=== PATIENT | female | born 1950 | race Caucasian/White ===

== ENCOUNTER → 2017-01-03 | Outpatient (CLI) | payer OTHER ==
[~2017-01-03] MED LIST: ASCO500T16 PO; ASPI81TA28 PO; DRON400T PO; FLEC100T21 PO; METO50TA7 PO; OMEG-21 PO; RIVA1TAB4 PO; SACC250C11; SERT50TA PO; THIA50TA3 PO; [UNRECOGNIZED DRUG - CODE] PO
[2017-01-03 14:20] LABS: ESTIMATED AVERAGE GLUCOSE 120 mg/dl; HA1C FLAG Normal (Normal)
[2017-01-03 15:25] LABS: ALB/GLOB RATIO 0.9 (0.9-2); ALKALINE PHOSPHATASE 59 U/L (45-117); ALT/SGPT 26 U/L (12-78); AST/SGOT 16 U/L (15-37); BLOOD UREA NITROGEN 21 mg/dl (7-18); CARBON DIOXIDE 29 mmol/L (21-32); CHLORIDE 105 mmol/L (98-107); CHOLESTEROL 179 mg/dl (0-200); CHOLESTEROL/HDL RATIO 2.3; CREATININE 0.63 mg/dl (0.60-1.20); GLUCOSE 89 mg/dl (70-99); HDL CHOLESTEROL 77 mg/dl; LDL CHOLESTEROL CALCULATED 87 mg/dl; POTASSIUM 4.3 mmol/L (3.5-5.1); SODIUM 142 mmol/L (136-145); TRIGLYCERIDES 77 mg/dl (0-150); VERY LOW DENSITY LIPOPROT CALC 15 mg/dl
--- NOTE | 2017-01-07 11:20 | CODING QUERY MEDICAL NECESSITY ---
SUPPORTING DIAGNOSIS NEEDED Dr. Thorne, A supporting diagnosis is required for the test/procedure performed on this patient in order for us to be reimbursed by the patient's insurance. Please provide a supporting diagnosis for the following test/procedure listed below next to the test name along with your signature. *If there is no additional diagnosis for this patient that would support the following test/procedure please document that below next to the test/procedure. Test(s)/Procedure(s) that require a supporting diagnosis: * [id number] GLYCATED HEMOGLOBIN DIAGNOSIS: DATE OF SERVICE: 01/03/17 Provider Signature: Date: Thank you Itz Wilcox [facility] Information Management Once completed, please kindly fax back to [phone] For questions please call [phone]
== END | disposition home or self-care (01) ==
LOC: C.LABBC 11:34
PROVIDERS: ATTEND Internal Medicine
DX: Z51.81 Encounter for therapeutic drug level monitoring (principal); Z79.01 Long term (current) use of anticoagulants; R73.01 Impaired fasting glucose

== ENCOUNTER → 2017-01-05 | Outpatient (CLI) | payer OTHER | END | disposition home or self-care (01) | LOC: C.PAPS 07:50 | PROVIDERS: ATTEND Internal Medicine Geriatric Medicine | DX: Z01.419 Encounter for gynecological examination (general) (routine) without abnormal findings (principal); N95.2 Postmenopausal atrophic vaginitis ==

== ENCOUNTER → 2017-01-13 | Outpatient (CLI) | payer OTHER | END | disposition home or self-care (01) | LOC: C.LAB 10:50 | PROVIDERS: ATTEND Internal Medicine | DX: Z11.59 Encounter for screening for other viral diseases (principal) ==

== ENCOUNTER → 2017-01-20 | Outpatient (CLI) | payer OTHER | END | disposition home or self-care (01) | LOC: C.MAMM 13:46 | PROVIDERS: ATTEND Internal Medicine | DX: Z00.00 Encounter for general adult medical examination without abnormal findings (principal); M85.851 Other specified disorders of bone density and structure, right thigh ==

== ENCOUNTER → 2017-04-20 | Outpatient (CLI) | payer OTHER ==
--- NOTE | 2017-04-20 11:37 | DIAGNOSTIC IMAGING REPORT ---
TWO VIEW CHEST CLINICAL HISTORY: Acute bronchitis. FINDINGS: PA and lateral chest radiographs are compared to study dated 09/26/2013. The cardiomediastinal silhouette is unremarkable. There is atherosclerotic calcification of the thoracic aorta. There is fullness of the right hilum. Chronic interstitial thickening is unchanged. No airspace consolidation or pleural effusion is identified. There is no pneumothorax. The skeletal structures are osteopenic. Degenerative change and mild scoliosis are noted in the thoracic spine. IMPRESSION: 1. There is no airspace consolidation or pleural effusion. 2. There is fullness of the right hilum. This likely represents a prominent pulmonary artery. Correlation with a contrast-enhanced chest CT is recommended for further interrogation and to rule out underlying mass or lymphadenopathy. Electronically signed by: Vincent Roca M.D. 04/20/2017 11:35 AM Dictated Date/Time: 04/20/2017 11:29 AM
== END | disposition home or self-care (01) ==
LOC: C.RADBC 11:08
PROVIDERS: ATTEND Internal Medicine
DX: J20.9 Acute bronchitis, unspecified (principal)

== ENCOUNTER → 2017-04-22 | Outpatient (CLI) | payer OTHER ==
[~2017-04-22] MED LIST changes: +OPTIRAY 320 IV PRN
--- NOTE | 2017-04-22 14:53 | DIAGNOSTIC IMAGING REPORT ---
CT SCAN OF THE CHEST WITH IV CONTRAST CLINICAL HISTORY: Follow-up abnormal chest x-ray. Fullness of the right hilum. COMPARISON STUDY: Chest x-ray dated 04/20/2017. TECHNIQUE: Following the IV administration of 93 cc of Optiray 320, CT scan of the thorax was performed from the thoracic inlet to the upper abdomen. Images are reviewed in the axial, sagittal, and coronal planes. IV contrast was administered without complication. CT DOSE: 670.27 mGy.cm FINDINGS: Thyroid: Imaged portions of the thyroid gland are normal in size and attenuation. Thoracic aorta: There is mild atherosclerotic calcification of the thoracic aorta, which is normal in caliber and demonstrates standard 3-vessel arch anatomy. No dissection is seen. Pulmonary vasculature: The pulmonary trunk is normal in caliber. There are no filling defects identified in the central pulmonary vessels to indicate pulmonary embolus. Note that this examination was not protocoled for evaluation of the pulmonary arteries. Heart: The heart is enlarged and without pericardial effusion. Lungs and pleural spaces: There is patchy groundglass consolidation identified in the superior segment of the right lower lobe. This likely represents a mild infectious/inflammatory pneumonitis. No pleural effusion is identified. The lungs are otherwise clear. The trachea and central airways are patent mild diffuse peribronchial thickening is observed. Mediastinum: There are prominent mediastinal lymph nodes. A precarinal node on image #116 measures 10 mm in short axis. Miryam: Prominent right hilar lymph nodes measure up to 9 mm in short axis. Axillae: There is no axillary lymphadenopathy. Upper abdomen: There is a tiny hiatal hernia. A 1.6 cm cyst is noted in the left lobe of liver. Additional subcentimeter hepatic hypodensities may also represent cysts but are 2 small for definitive characterization. There is evidence of hepatic steatosis. Skeletal structures: The skeletal structures are osteopenic. There is a mild and age indeterminant superior end plate compression deformity of T7. Mild degenerative change is seen in the shoulders and thoracic spine. No lytic or blastic bony lesions are seen. IMPRESSION: 1. There is mild patchy groundglass consolidation identified in the superior segment of the right lower lobe. The appearance is typical for a mild infectious/inflammatory pneumonitis. Clinical correlation will be required. 2. Mild diffuse peribronchial thickening suggests reactive air disease. 3. Mild cardiomegaly. 4. There are prominent mediastinal and hilar lymph nodes. These are not clearly pathologically enlarged by size criteria and are likely on a reactive basis. 5. There is no mass or concerning adenopathy identified in the right hilum as questioned by chest x-ray. Electronically signed by: Vincent Roca M.D. 04/22/2017 2:52 PM Dictated Date/Time: 04/22/2017 2:41 PM
== END | disposition home or self-care (01) ==
LOC: C.CTS 13:45
PROVIDERS: ATTEND Physician Assistant
DX: R91.8 Other nonspecific abnormal finding of lung field (principal); R59.0 Localized enlarged lymph nodes

== ENCOUNTER 2017-07-06 09:46 | Inpatient (IN) | payer OTHER ==
[2017-07-06] VITALS (7 sets, daily range): BP systolic 101–124; BP diastolic 64–73; PULSE 56–102; TEMP 36.4–36.6; O2SAT 92–95; Ht 165.1 cm; Wt 108.0 kg
[~2017-07-06] VITALS: Ht 165.1 cm; Wt 108.0 kg
[~2017-07-06 09:46] MED LIST changes: -DRON400T PO; -OPTIRAY 320 IV PRN; -SACC250C11; -SERT50TA PO; -THIA50TA3 PO
[2017-07-06] MEDS ORDERED: DILTIAZEM BOLUS / DRIP IV STA (09:51)
--- NOTE | 2017-07-06 10:22 | DIAGNOSTIC IMAGING REPORT ---
CHEST ONE VIEW PORTABLE CLINICAL HISTORY: 66 years-old Female presenting with Chest Pain. TECHNIQUE: Portable upright AP view of the chest was obtained. COMPARISON: 04/20/[address] from 04/22/2017.. FINDINGS: Atherosclerosis of aortic arch. Prominence of the right hilum. Previously noted opacities in the superior segment of the right lower lobe on chest CT from 04/22/2017 are not apparent. Lungs and pleural spaces otherwise clear. Osseous structures normal. Upper abdomen normal. IMPRESSION: 1. Prominence of the right hilum could correspond with hilar lymphadenopathy. 2. Previously noted centrilobular nodular opacities in the superior segment of the right lower lobe on chest CT from 04/22/2017 are not radiographically apparent. No new focal infiltrate. Electronically signed by: Suleiman Garner M.D. 07/06/2017 10:21 AM Dictated Date/Time: 07/06/2017 10:18 AM
[2017-07-06 10:30] LABS: BASO % 0.3 %; BASO ABS # 0.02 K/uL (0-0.2); COMPLETE YES; EOS % 2.2 %; HEMATOCRIT 44.6 % (37-47); IG% 0.2 %; LYMPH % 29.2 %; LYMPH ABS # 1.69 K/uL (1.2-3.4); MEAN CELL VOLUME 90.3 fL (80-100); MEAN CORPUSCULAR HEMOGLOBIN 30.8 pg (25-34); MEAN CORPUSCULAR HGB CONC 34.1 g/dl (32-36); MEAN PLATELET VOLUME 10.7 fL (7.4-10.4); MONO % 13.3 %; NEUT % 54.8 %; PLATELET COUNT 232 K/uL (130-400); RED BLOOD COUNT 4.94 M/uL (4.2-5.4); WHITE BLOOD COUNT 5.78 K/uL (4.8-10.8)
[2017-07-06] MEDS ORDERED: SODIUM CHLORIDE 0.9% 1000ML 1,000 ML IV STA (10:30)
[2017-07-06 10:46] LABS: BLOOD UREA NITROGEN 15 mg/dl (7-18); BUN/CREATININE RATIO 20.8 (10-20); CALCIUM 9.1 mg/dl (8.5-10.1); CARBON DIOXIDE 29 mmol/L (21-32); CHLORIDE 106 mmol/L (98-107); CREATININE 0.74 mg/dl (0.60-1.20); GLUCOSE 112 mg/dl (70-99); POTASSIUM 3.9 mmol/L (3.5-5.1); SODIUM 140 mmol/L (136-145)
[2017-07-06 10:51] LABS: CKMB/CK RATIO 1.1 (0-3.0)
[2017-07-06] MEDS: DILTIAZEM HCL INJ 125 MG in DEXTROSE 5% 100ML IV PRN ×2 (10:59→13:01)
[2017-07-06] MEDS ORDERED: DRON400T PO (11:03)
[2017-07-06] MEDS ORDERED: THIA50TA3 PO (11:03)
[2017-07-06] MEDS ORDERED: SACC250C11 (11:03)
[2017-07-06] MEDS ORDERED: ONDANSETRON INJ 2 MG/ML 2 ML VIAL IV PRN (11:30)
[2017-07-06] MEDS ORDERED: POLYETHYLENE (MIRALAX) 17 GM PACK PO PRN (11:30)
[2017-07-06] MEDS ORDERED: ACETAMINOPHEN 325 MG TAB PO PRN (11:30)
[2017-07-06] MEDS ORDERED: ALUMINUM/MAGNESIUM/SIMETH (MAALOX MAX) 30 ML UDC PO PRN (11:30)
[2017-07-06] MEDS ORDERED: MAGNESIUM HYDROXIDE SUSP 30 ML UDC PO PRN (11:30)
[2017-07-06] MEDS ORDERED: METOPROLOL TARTRATE 50 MG TAB PO ONE (12:00)
--- NOTE | 2017-07-06 12:28 | EMERGENCY ROOM VISIT NOTE ---
History Report prepared by Gillian: Sanaz Mcghee Under the Supervision of: Dr. Cosme Dodd D.O. First contact with patient: 09:48 Stated Complaint: AFIB History of Present Illness The patient is a 66 year old female who presents to the Emergency Room with complaints of a constant rapid heart rate since she woke up this morning about 2.5 hours [employer]. She laid in bed for an hour and a half because she felt unwell. She was also feeling short of breath. At 8:30 she went to take her morning medications and noticed that she had forgotten to take all of her medications last night. EMS was called and the patient was brought to the ED by ambulance. She was found to be in AFIB. Paramedics called for medical command and the patient was given 20mg of Cardizem en route. Her symptoms improved with Cardizem. The patient does not wear O2 at home. She is not normally in a-fib. Pt denies headache, change in vision, fevers, chest pain nausea, vomiting, diarrhea, pain with urination, and melena. She takes Xarelto. She has a history of AFIB and states that this is typically how she feels when she has an episode of AFIB. Source of History: patient, EMS Onset: 2.5 hours [employer] Position: chest Quality: other (rapid) Timing: resolved Modifying Factors (Worsening): other (medication noncompliance) Modifying Factors (Relieving): other (Cardizem) Associated Symptoms: + SOB, No fevers, No headache, No chest pain, No nausea , No vomiting, No melena, No diarrhea, No urinary symptoms Review of Systems See HPI for pertinent positives & negatives. A total of 10 systems reviewed and were otherwise negative. Past Medical & Surgical Medical Problems: (1) Atrial fibrillation (2) Hypertension Family History Hypertension Social History Alcohol Use: none Drug Use: none Marital Status: single Housing Status: lives with family Occupation Status: retired Current/Historical Medications Scheduled Ascorbic Acid (Ascorbic Acid), 500 MG PO DAILY Dronedarone Hcl (Multaq), 1 TAB PO BID Metoprolol Succ (Toprol Xl) (Toprol-Xl), 50 MG PO DAILY Rivaroxaban (Xarelto), 20 MG PO DAILY Thiamine Hcl (Vitamin B-1), 50 MG PO DAILY Miscellaneous Medications Saccharomyces Boulardii (Probiotic) Allergies Coded Allergies: No Known Allergies (Unverified , 11/11/14) Physical Exam Vital Signs Date Time Temp Pulse Resp B/P (MAP) Pulse Ox O2 Delivery O2 Flow Rate FiO2 07/06/17 11:55 92 Room Air 07/06/17 11:46 100 16 131/76 07/06/17 11:18 126 20 125/72 93 Room Air 07/06/17 10:52 114 16 141/90 92 Room Air 07/06/17 10:20 103 16 85/66 94 Room Air 07/06/17 09:58 36.7 110 20 151/121 92 Room Air 07/06/17 09:57 109 Physical Exam GENERAL: alert, sitting up in bed, disheveled appearing, well nourished, minimal distress, non-toxic EYE EXAM: normal conjunctiva OROPHARYNX: no exudate, no erythema, lips, buccal mucosa, and tongue normal and mucous membranes are moist NECK: supple, no nuchal rigidity, no adenopathy, non-tender, no JVD LUNGS: Clear to auscultation. Normal chest wall mechanics HEART: Tachycardic, irregularly irregular, systolic ejection murmur, S1 normal and S2 normal ABDOMEN: abdomen soft, non-tender, normo-active bowel sounds, no masses, no rebound or guarding. BACK: Back is symmetrical on inspection and there is no deformity, no midline tenderness, no CVA tenderness. SKIN: no rashes and no bruising UPPER EXTREMITIES: upper extremities are grossly normal. LOWER EXTREMITIES: No pitting edema. Calves equal bilaterally. NEURO EXAM: Normal sensorium, cranial nerves II-XII grossly intact, normal speech, no gross weakness of arms, no gross weakness of legs. Medical Decision & Procedures ER Provider Diagnostic Interpretation: Radiology results as stated below per my review and the radiologist's interpretation: CHEST ONE VIEW PORTABLE CLINICAL HISTORY: 66 years-old Female presenting with Chest Pain. TECHNIQUE: Portable upright AP view of the chest was obtained. COMPARISON: 04/20/[address] from 04/22/2017.. FINDINGS: Atherosclerosis of aortic arch. Prominence of the right hilum. Previously noted opacities in the superior segment of the right lower lobe on chest CT from 04/22/2017 are not apparent. Lungs and pleural spaces otherwise clear. Osseous structures normal. Upper abdomen normal. IMPRESSION: 1. Prominence of the right hilum could correspond with hilar lymphadenopathy. 2. Previously noted centrilobular nodular opacities in the superior segment of the right lower lobe on chest CT from 04/22/2017 are not radiographically apparent. No new focal infiltrate. Electronically signed by: Suleiman Garner M.D. 07/06/2017 10:21 AM Dictated Date/Time: 07/06/2017 10:18 AM Laboratory Results 07/06/17 10:15 Red Blood Count 4.94, Mean Corpuscular Volume 90.3, Mean Corpuscular Hemoglobin 30.8, Mean Corpuscular Hemoglobin Concent 34.1, Mean Platelet Volume 10.7, Neutrophils (%) (Auto) 54.8, Lymphocytes (%) (Auto) 29.2, Monocytes (%) (Auto) 13.3, Eosinophils (%) (Auto) 2.2, Basophils (%) (Auto) 0.3, Neutrophils # (Auto ) 3.16, Lymphocytes # (Auto) 1.69, Monocytes # (Auto) 0.77, Eosinophils # (Auto ) 0.13, Basophils # (Auto) 0.02 07/06/17 10:15 Test 07/06/17 10:15 White Blood Count 5.78 K/uL (4.8-10.8) Red Blood Count 4.94 M/uL (4.2-5.4) Hemoglobin 15.2 g/dL (12.0-16.0) Hematocrit 44.6 % (37-47) Mean Corpuscular Volume 90.3 fL (80-100) Mean Corpuscular Hemoglobin 30.8 pg (25-34) Mean Corpuscular Hemoglobin Concent 34.1 g/dl (32-36) Platelet Count 232 K/uL (130-400) Mean Platelet Volume 10.7 fL (7.4-10.4) Neutrophils (%) (Auto) 54.8 % Lymphocytes (%) (Auto) 29.2 % Monocytes (%) (Auto) 13.3 % Eosinophils (%) (Auto) 2.2 % Basophils (%) (Auto) 0.3 % Neutrophils # (Auto) 3.16 K/uL (1.4-6.5) Lymphocytes # (Auto) 1.69 K/uL (1.2-3.4) Monocytes # (Auto) 0.77 K/uL (0.11-0.59) Eosinophils # (Auto) 0.13 K/uL (0-0.5) Basophils # (Auto) 0.02 K/uL (0-0.2) RDW Standard Deviation 45.8 fL (36.4-46.3) RDW Coefficient of Variation 13.9 % (11.5-14.5) Immature Granulocyte % (Auto) 0.2 % Immature Granulocyte # (Auto) 0.01 K/uL (0.00-0.02) Anion Gap 5.0 mmol/L (3-11) Est Creatinine Clear Calc Drug Dose 90.6 ml/min Estimated GFR () 97.2 Estimated GFR (Non- 83.8 BUN/Creatinine Ratio 20.8 (10-20) Calcium Level 9.1 mg/dl (8.5-10.1) Total Creatine Kinase 146 U/L (26-192) Creatine Kinase MB 1.6 ng/ml (0.5-3.6) Creatine Kinase MB Ratio 1.1 (0-3.0) Troponin I < 0.015 ng/ml (0-0.045) Laboratory results per my review. Medications Administered Medications (Trade) Dose Ordered Sig/Troy Route Start Time Stop Time Status Last Admin Dose Admin Diltiazem HCl 125 mg/Dextrose 125 ml @ 0 mls/hr Q0M PRN IV 07/06/17 10:15 07/06/17 23:59 07/06/17 10:59 5 MLS/HR Sodium Chloride 1,000 ml @ 999 mls/hr Q1H1M STAT IV 07/06/17 10:30 07/06/17 11:30 DC 07/06/17 11:22 999 MLS/HR Metoprolol Tartrate (Lopressor Tab) 25 mg ONE ONCE PO 07/06/17 12:00 07/06/17 12:20 DC 07/06/17 12:09 25 MG ECG Indication: SOB/dyspnea Rate (beats per minute): 119 Rhythm: atrial fibrillation (RVR) Findings: nonspecific-ST abn (Lateral), PVC ED Course ED COURSE: Vital signs were reviewed and showed tachycardic. The patients medical record was reviewed The above diagnostic studies were performed and reviewed. ED treatments and interventions as stated above. 0935: I received medical command and ordered 20 mg of Cardizem IV. 0948: The patient was evaluated in room A9B. A complete history and physical examination was performed. 1015: Diltiazem HCl 125 mg/Dextrose IV 1030: NSS 1000 ml @ 999 mls/hr IV 1052: Upon reevaluation, the patient is resting more comfortably. I discussed my findings with the patient and she understands and agrees with the treatment plan. Based on the patients age, coexisting illnesses, exam and lab findings the decision to treat as an inpatient was made. The patient remained stable while under my care. The patient will be evaluated for further management. 1106: I reviewed the patient's case with Dr. Mccartney. [facility] will evaluate the patient for further management. Medical Decision Differential diagnoses includes but is not limited to pneumonia, bronchitis, COPD/Asthma exacerbation, pneumothorax, pulmonary embolism, congestive heart failure, acute coronary syndrome Patient is a 66-year-old female who forgot to take her medications last night that presents the ER in A. fib with RVR. I took medical command and EKG showed A. fib with RVR. We gave 20 mg IV Cardizem prior to arrival. Upon arrival patient's heart rate was in the 100-120's. She was placed on a Cardizem drip at this time. Heart rate eventually treated up until 130s to 140s. Present trip was titrated from 5 mg 10 mg. Heart rate trended back down into the low 110-120. Patient was resting comfortably. Chest x-ray was unremarkable along with troponin. Patient was updated bedside admitted to internal medicine with A. fib with RVR on a Cardizem drip being titrated up. Medication Reconcilliation Current Medication List: was personally reviewed by id Blood Pressure Screening Patient's blood pressure: Normal blood pressure Consults Time Called: 1103 Consulting Physician: Dr. Mccartney Returned Call: 1106 I reviewed the patient's case with Dr. Mccartney. [facility] will evaluate the patient for further management. Impression Primary Impression: Atrial fibrillation with RVR Additional Impression: Shortness of breath Critical Care I have personally spent 35 minutes of critical care time in the direct management of this patient. This includes bedside care, interpretation of diagnostic studies, and testing, discussion with consultants, patient, and family members, and other required patient management activities. This 35 minutes is in excess of all separately billable procedures. Scribe Attestation The scribe's documentation has been prepared under my direction and personally reviewed by me in its entirety. I confirm that the note above accurately reflects all work, treatment, procedures, and medical decision making performed by me. Departure Information Dispostion Being Evaluated By Hospitalist Referrals Suleiman Thorne M.D. (PCP) Problem Qualifiers
--- NOTE | 2017-07-06 13:43 | History and Physical ---
History & Physical Date of Service Jul 06, 2017. History & Physical admit #[id number]
[2017-07-06] MEDS ORDERED: METOPROLOL TARTRATE 25 MG TAB PO SCH (14:00)
--- NOTE | 2017-07-06 14:12 | HISTORY & PHYSICAL EXAMINATION ---
DATE OF ADMISSION: 07/06/2017 CHIEF COMPLAINT: Palpitations and lightheadedness. HISTORY OF PRESENT ILLNESS: The patient is a very pleasant 66-year-old female who notes that while this almost never happened, she accidentally forgot to take her evening meds last night. She woke up this morning, feeling palpitations and a little lightheadedness, which is very similar to what she feels whenever she is in RVR. She checked her pulse and it was up. She took her morning meds, hoping that that would correct this and then she would be doing better. Unfortunately, she continued to feel dizzy and palpitations. She notes at one point with a pulse ox, on her finger, her pulse dropped to 48 and her pulse oximetry down to 81%. Although, she notes not really feeling short of breath, maybe mildly so, but more just feeling more lightheaded at that time; however, she then summoned 911 and was brought to the ER and has been found in AFib with RVR since. She denies any chest pressure. The shortness of breath is very mild at worst, certainly not severe at all. No fevers, chills, or sweats. No other inciting factors other than for getting her meds. She notes that probably in the entirety of her history of AFib, she has forgotten her meds 4 times, so it is not a routine thing and generally she has been under good control. REVIEW OF SYSTEMS: Otherwise negative, except for as above. PAST MEDICAL HISTORY: Includes AFib and situational anxiety related to taking care of her sick . Unfortunately today is in fact her anniversary. MEDICATIONS: Fish oil 1000 mg daily, metoprolol succinate 50 mg daily, Multaq 400 mg b.i.d., probiotic daily, Zoloft 50 mg daily, B12 at 1000 mcg daily, vitamin C 1000 mg daily, and Xarelto 20 mg daily. PAST SURGICAL HISTORY: Includes Bartholin gland cyst excision, tonsillectomy, adenoidectomy and a tubal. FAMILY HISTORY: Most significant for AFib in mom and sister and SD in her father. SOCIAL HISTORY: Very rare alcohol. She is not a smoker. She is retired, and cares for her . ALLERGIES: No known drug allergies. PHYSICAL EXAMINATION: VITAL SIGNS: Her initial vitals showed a temp of 36.7, pulse in the 109-110 range, respiratory rate 16, blood pressure 151/121, and 92%-94% on room air. GENERAL: She is awake, alert, and oriented x3, pleasant, slightly fatigued appearing, but otherwise in no acute distress. HEENT: Normocephalic and atraumatic. Mucous membranes are moist. CARDIOVASCULAR: Tachycardic and irregularly irregular. Although, actually even during the time of interview and exam, her heart rate goes from the one teens to bouncing between 80s to the low 100s. She shows no rubs, murmurs, or gallops. LUNGS: Faintly coarse at the bases. Clear elsewhere. No discrete rales, rhonchi, or wheezes. Good effort. Good air entry. No accessory muscle use. ABDOMEN: Soft, nondistended, and nontender. No masses or organomegaly. EXTREMITIES: Without cyanosis, clubbing or edema. No calf tenderness. SKIN: Shows no rashes. No pallor or icterus. NEUROLOGIC: Shows cranial nerves II-XII to be grossly intact. Gross motor and sensory are intact. MUSCULOSKELETAL: No gross lesions. LABS AND DIAGNOSTICS: CBC shows a white count of 5.78, hemoglobin 15.2, and platelets 232. Basic metabolic panel with sodium 140, potassium 3.9, chloride 106, CO2 of 29, BUN 15, creatinine 0.74, calcium 9.1, and glucose 112. CK total of 146 with an MB of 1.6. Troponin of less than 0.015. TSH of 1.5. Chest x-ray was read as atherosclerosis of the aortic arch, prominence of the right hilum. Previously noted opacities in the superior segment of the right lower lobe on chest CT from 04/22/2017 are no longer apparent. Lung and pleural spaces otherwise clear. Osseous structures are normal. Upper abdomen normal. To my review, there is maybe mild pulmonary vascular prominence. EKG shows atrial fibrillation at 119 without any significant ischemic changes. ASSESSMENT AND PLAN: 1. Atrial fibrillation with rapid ventricular response. This appears to be incited by accidentally forgetting to take her meds. Fortunately, it does not appear that the compliance is regular issue and her medication regimen is not very complicated. At this point, the ER started her on a diltiazem drip and she is already improving rather dramatically, we plan to transition over to an additional oral metoprolol at this point 12.5 t.i.d. in addition to her regular 50 mg daily and titrate up or down as needed. Hopefully, we will be able to get this under control and hopefully home in the next day or so. We will continue her on her Multaq. If her rates are refractory, certainly we can utilize IV beta blockers or IV calcium channel blockers again, but it appears she is going to improve fairly quickly. 2. Anxiety. Continue her Zoloft. 3. Deep venous thrombosis prophylaxis. She is anticoagulated with Xarelto for atrial fibrillation. [facility]
[2017-07-06] MEDS ORDERED: RIVAROXABAN 20 MG TAB PO SCH (16:45)
[2017-07-06] MEDS: DRONEDARONE 400 MG TAB PO SCH (19:32)
--- NOTE | 2017-07-06 19:32 | CARDIOLOGY CONSULTATION ---
DATE OF CONSULTATION: 07/06/2017 REFERRING PHYSICIAN: Dr. Cosme Mccartney. REASON FOR CONSULTATION: Paroxysmal atrial fibrillation with rapid ventricular response. CHIEF COMPLAINT ON ADMISSION: Lightheadedness and palpitations. HISTORY OF PRESENT ILLNESS: Ms. Estrada is a 66-year-old female who awoke this morning with a feeling of generalized unwellness. She initially checked her pulse oximeter, which was normal; however, she noted that her heart rate and pulse ox had declined. She became somewhat lightheaded and crawled down her hallway to her 's room. She reports a minimum heart rate of 48 beats per minute. EMS was summoned and she was brought to the Emergency Department. In the ER, she was found to be in atrial fibrillation with rapid ventricular response. The patient initially received 20 mg of intravenous Cardizem en route to the ER. She was then started on an intravenous Cardizem infusion and received an additional 12.5 mg of metoprolol. Upon transfer from the Emergency Department to the progressive care unit, the patient converted to sinus rhythm. Her initial post-conversion pause was approximately 3.1 seconds. She was on an intravenous Cardizem infusion at that point. She then developed a subsequent 3-second and a 4-second pause. There were no associated symptoms. Her intravenous Cardizem infusion was subsequently discontinued. The patient is currently feeling much better and back to her baseline. The patient admits to missing her dose of Multaq last evening. In general, she has been compliant with medications. She has been followed by an in classroom tutor at [facility] in [place]. Previously followed by the [facility]. She is unknown to the [facility] from a cardiovascular perspective. REVIEW OF SYSTEMS: The pertinent positive noted above, a comprehensive 10-system review is otherwise negative. PAST MEDICAL HISTORY: 1. Paroxysmal atrial fibrillation, previously treated with "pill in the pocket" regimen including flecainide 300 mg as needed. 2. Hypertension. FAMILY HISTORY: Significant for father with heart disease at age 82, brother at age 49 for coronary artery disease, father with MA at 51, and sister with atrial fibrillation and hypertension. SOCIAL HISTORY: Lifelong nonsmoker. She is and retired. She states she exercises regularly. ALLERGIES: No known drug allergies. CURRENT OUTPATIENT MEDICATIONS: 1. Ascorbic acid 500 mg daily. 2. Multaq 400 mg twice daily. 3. Toprol-XL 50 mg daily. 4. Xarelto 20 mg daily. 5. Thiamine 50 mg daily. 6. Probiotic daily. ECG ON ADMISSION: Atrial fibrillation, occasional PVCs versus aberrantly conducted complexes, ventricular rate at 119 beats per minute, nonspecific ST abnormality. CHEST X-RAY ON ADMISSION: Prominence of the right hilum, no new focal infiltrate. high pressure operator currently demonstrates sinus rhythm. No recurrent pauses since discontinuation of intravenous Cardizem. LABORATORY DATA: White blood cell count 5.78, hemoglobin is 15.2. Sodium is 140, potassium 3.9, chloride 106, CO2 is 29, BUN is 15, and creatinine is 0.74. PHYSICAL EXAMINATION: VITAL SIGNS: Temperature is 36.5 degrees centigrade, pulse 79 beats per minute and regular, respiratory rate is 18 breaths per minute, blood pressure 101/64 and SaO2 is 94% on room air. GENERAL: NAD, awake, alert and oriented x3. HEENT: Mucous membranes are moist. No scleral icterus. The conjunctivae are pink. NECK: Supple. There is no JVD, no HJR, and no carotid bruit. HEART: Regular with a normal S1 and S2. There is no murmur, rub, or gallop. LUNGS: Clear without rales, rhonchi or wheeze. ABDOMEN: Soft and nontender. There is no rebound or guarding. Normal bowel sounds. EXTREMITIES: Demonstrate no clubbing, cyanosis, or edema. NEUROLOGIC: Demonstrates no focal deficit. FINAL IMPRESSION: 1. Paroxysmal atrial fibrillation with CHADS-VASc score of 2. Episode of rapid atrial fibrillation likely precipitated by noncompliance with antiarrhythmic therapy. The patient subsequently converted to sinus rhythm with a 3.1-second post-conversion pause recorded. They were then approximately three 3-4 second pauses post-conversion likely attributed to intravenous Cardizem infusion. 2. Hypertension -- controlled. 3. Previously failed therapy with flecainide. 4. Chronic anticoagulation with Xarelto. PLAN AND RECOMMENDATIONS: Intravenous Cardizem has been discontinued. I will continue current antiarrhythmic therapy with Multaq at this time. She will also continue metoprolol 50 mg daily. Observe telemetry overnight for any recurrent significant bradycardia, pauses or heart block. Xarelto will be continued for chronic anticoagulation. I will continue to follow during hospitalization. Thank you for allowing me to take part in the care of your patient. MARLIN
[2017-07-07 04:00] VITALS: BP 108/68; PULSE 65; TEMP 36.4; O2SAT 93
[2017-07-07] MEDS: DRONEDARONE 400 MG TAB PO SCH (07:49)
[2017-07-07 08:00] VITALS: BP 101/62; PULSE 67; TEMP 36.8; O2SAT 92; O2SAT 98
[2017-07-07] MEDS ORDERED: THIAMINE HCL 50 MG TAB PO SCH (09:00)
[2017-07-07] MEDS ORDERED: SACCHAROMYCES BOUL (FLORASTOR) 250 MG CAP PO SCH (09:00)
[2017-07-07] MEDS ORDERED: ASCORBIC ACID 500 MG TAB PO SCH (09:00)
[2017-07-07] MEDS ORDERED: RIVAROXABAN 20 MG TAB PO SCH (09:00)
[2017-07-07] MEDS ORDERED: METOPROLOL SUCC 50MG EXT REL TAB PO SCH (09:00)
--- NOTE | 2017-07-07 10:37 | CARDIOLOGY PROGRESS NOTE ---
DATE: 07/07/2017 DATE: 07/07/2017 SUBJECTIVE: The patient is seen and examined at the bedside. Feeling well this morning. No recurrent atrial fibrillation overnight. There were no significant pauses or symptomatic bradycardia recorded. Occasional premature ventricular complexes noted on telemetry. Denies chest pain or shortness of breath. Resting comfortably. No medication changes were made. Offers no complaints at this time. REVIEW OF SYSTEMS: The pertinent positive noted above. A 3 system review including cardiovascular, pulmonary, gastroenterologic systems otherwise negative. LABORATORY DATA: No repeat labs were performed this morning. INPATIENT MEDICATIONS: Reviewed. PHYSICAL EXAMINATION: VITAL SIGNS: Temperature is 36.8 degrees Celsius, pulse 67 beats per minute and regular, respiratory rate is 18 breaths per minute, blood pressure 101/62, SAO2 is 98% on room air. GENERAL: NAD, overweight, awake, alert and oriented x3. HEAD, EYES, EARS, NOSE, AND THROAT: Mucous membranes moist. No scleral icterus. Conjunctivae pink. NECK: Supple. There is no JVD, no HJR, no carotid bruit. HEART: Regular with a normal S1 and S2. There is a 1/6 systolic ejection murmur heard best at the right second intercostal space without radiation. LUNGS: Clear without rales, rhonchi or wheeze. ABDOMEN: Soft and nontender. No rebound or guarding. Normal bowel sounds. EXTREMITIES: Warm and dry. There is no clubbing, cyanosis, or edema. NEUROLOGIC EXAMINATION: Demonstrates no focal motor deficit. Cranial nerves grossly intact. FINAL IMPRESSION: 1. Paroxysmal atrial fibrillation with rapid ventricular response, status post spontaneous conversion to normal sinus rhythm. A 3.1 second post-conversion pause noted by two 3-4 second sinus pauses post-conversion. There has been no recurrent bradycardia or pauses overnight. The pauses occurred in the setting of intravenous Cardizem infusion. Of note, the patient also reported lightheadedness associated with bradycardia prior to admission. These findings and symptoms suggest early tachybrady syndrome. 2. Soft systolic ejection murmur. 3. Hypertension -- controlled. 4. Chronic anticoagulation with Xarelto. 5. Previously failed antiarrhythmic therapy with flecainide. PLAN AND RECOMMENDATIONS: The patient will continue Multaq plus metoprolol as previously ordered. Xarelto will be continued for anticoagulation at this time. Recommend 14 to 30-day outpatient compliance monitor to assess atrial fibrillation burden as well as borderline tachybrady syndrome. The patient currently follows with a quantitative analyst at [facility] in [place]. She is considering establishing with local cardiology. She will discuss further with her family members. I also discussed her hospitalization and plan of care with her son-in-law, Dr. Chriss Johnson who is a quantitative analyst. All questions were answered to her satisfaction. She is stable for discharge from a cardiovascular perspective. Thank you for allowing me to take part in the care of your patient.
[2017-07-07 12:00] VITALS: BP 108/72; PULSE 60; TEMP 36.6; O2SAT 92; O2SAT 98
[2017-07-07 13:36] VITALS: BP 108/72; PULSE 60; TEMP 36.6; O2SAT 98
--- NOTE | 2017-07-11 20:30 | DISCHARGE SUMMARY ---
Please see dictated H&P for full details of presentation. Briefly, the patient is a 66-year-old with history of paroxysmal atrial fibrillation who presented with palpitations and lightheadedness. She was discovered to have atrial fibrillation with rapid ventricular response and she was brought in to the hospital for further treatment. She was started on diltiazem drip which led to some 3- to 4-second sinus pauses. She spontaneously converted to normal sinus rhythm, pauses occurred during Cardizem infusion. She was seen in consultation by Dr. Deleon of cardiology. She was asymptomatic and in normal sinus rhythm. He felt she had paroxysmal atrial fibrillation and possible signs of clinical tachybrady syndrome. He recommended that she continue with Multaq and metoprolol with Xarelto for anticoagulation and a Holter monitor be assessed to determine her atrial fibrillation burden. The above was discussed with the patient and she was in agreement with the therapy. She will follow up with cardiology in 1 week's time. MEDICATIONS ON DISCHARGE: Multaq 400 mg twice a day, metoprolol 50 mg daily XL, Xarelto 20 mg daily, probiotics and thiamine 50 mg daily. CBC and chemistry within normal limits. Chest x-ray: Prominent right hilum ____ lymphadenopathy and previously noted central lobular nodular opacities in superior segment of the right lower lobe. CAT scan is not radiographically apparent. Time spent in review of the chart, discussion with the patient on the date of discharge, 31 minutes.
== END 2017-07-07 15:13 | disposition home or self-care (01) | DRG 310 ==
LOC: EDBD 09:46 → C.EDA 09:47 → C.2T 11:29 → ENRESERV 11:48
PROVIDERS: ADMIT Family Medicine; ATTEND Family Medicine
DX: I48.0 Paroxysmal atrial fibrillation (principal); I10 Essential (primary) hypertension; F41.8 Other specified anxiety disorders; Z82.49 Family history of ischemic heart disease and other diseases of the circulatory system; Z79.01 Long term (current) use of anticoagulants; Z79.899 Other long term (current) drug therapy

== ENCOUNTER 2017-07-22 11:32 | Emergency (ER) | payer OTHER ==
[~2017-07-22] VITALS: Ht 165.1 cm; Wt 109.5 kg
[~2017-07-22 11:32] MED LIST changes: -ASPI81TA28 PO; +DRON400T PO; -FLEC100T21 PO; -OMEG-21 PO; +SACC250C11; +THIA50TA3 PO; -[UNRECOGNIZED DRUG - CODE] PO
[2017-07-22 11:45] VITALS: TEMP 36.3; O2SAT 97; Ht 165.1 cm; Wt 109.5 kg
[2017-07-22 12:30] VITALS: O2SAT 95
--- NOTE | 2017-07-22 12:48 | DIAGNOSTIC IMAGING REPORT ---
CHEST ONE VIEW PORTABLE CLINICAL HISTORY: Atypical chest pain. Arrhythmia. COMPARISON STUDY: July 06, 2017 FINDINGS: The heart is normal in size. There is no failure. There is no focal pulmonary consolidation. Underlying upper lobe emphysema is suspected. There are no pleural effusions.[ IMPRESSION: No active disease in the chest. Electronically signed by: Prashant Olivas M.D. 07/22/2017 12:46 PM Dictated Date/Time: 07/22/2017 12:45 PM
[2017-07-22] MEDS ORDERED: SERT50TA PO (12:52)
--- NOTE | 2017-07-22 13:43 | EMERGENCY ROOM VISIT NOTE ---
History Report prepared by Gillian: Sanaz Mcghee Under the Supervision of: Dr. Nikolas Ng M.D. First contact with patient: 12:03 Chief Complaint: IRREGULAR HEARTBEAT Stated Complaint: IRREGULAR HEART BEAT, AFIB Nursing Triage Summary: PT PRESENTS TO ED WITH C/O "HEART RACING" PT STATES HAS HAD EPISODES OF DIZZINESS AND SOB SINCE LAST WEEK. PT IS CURRENTLY WEARING A HOLTER MONITOR. PT STATES NOT FEELING WELL SINCE LAST PM. PT STATES CALLING HER PCP AND WAS TOLD TO COME TO ED History of Present Illness The patient is a 66 year old female who presents to the Emergency Room with complaints of an intermittently irregular heart beat for the past several days. The patient has a history of atrial fibrillation. She states that over the past few days she has been dizzy and short of breath. She has felt that she has been in a-fib intermittently over this period of time. She is currently wearing a Holter monitor that was ordered by her PCP. She called her PCP today and was told to come to the ED for further evaluation. The patient is on Xarelto and has not missed any doses. She has an appointment with Dr. Prasad in September. She denies any nausea, vomiting, diarrhea, and abdominal pain. She has never had to be cardioverted for her a-fib before. Source of History: patient Onset: a few days ago Position: chest Quality: other (irregular) Timing: intermittent Associated Symptoms: + SOB, No nausea, No vomiting, No abdominal pain, No diarrhea Note: Pt notes dizziness. Review of Systems See HPI for pertinent positives & negatives. A total of 10 systems reviewed and were otherwise negative. Past Medical & Surgical Medical Problems: (1) Atrial fibrillation (2) Hypertension Family History Hypertension Social History Smoking Status: Never Smoker Alcohol Use: none Drug Use: none Marital Status: single Housing Status: lives with family Occupation Status: retired Current/Historical Medications Scheduled Ascorbic Acid (Ascorbic Acid), 500 MG PO DAILY Dronedarone Hcl (Multaq), 1 TAB PO BID Metoprolol Succ (Toprol Xl) (Toprol-Xl), 50 MG PO DAILY Rivaroxaban (Xarelto), 20 MG PO DAILY Sertraline (Zoloft), 50 MG PO QPM Thiamine Hcl (Vitamin B-1), 50 MG PO DAILY Miscellaneous Medications Saccharomyces Boulardii (Probiotic) Allergies Coded Allergies: No Known Allergies (Unverified , 07/22/17) Physical Exam Vital Signs Date Time Temp Pulse Resp B/P (MAP) Pulse Ox O2 Delivery O2 Flow Rate FiO2 07/22/17 14:10 63 18 129/73 07/22/17 14:01 64 07/22/17 13:19 134 178/88 07/22/17 13:12 132 18 80/46 07/22/17 12:30 95 07/22/17 12:03 120 07/22/17 11:45 36.3 98 20 126/96 97 Room Air Physical Exam GENERAL: Patient is a healthy-appearing well-nourished 66 year old female HEAD: Normocephalic atraumatic EYES: Ocular movements intact pupils equal and react to light OROPHARYNX mucous membranes are moist no exudates present no erythema or edema present NECK: Supple no nuchal rigidity CHEST: Good equal expansion LUNGS: Clear and equal to auscultation CARDIAC: Irregularly irregular. Normal S1 and S2 ABDOMEN: Soft nontender no guarding BACK: No CVA tenderness EXTREMITIES: No pain upon palpation normal muscle strength in all groups no clubbing cyanosis or edema NEURO: Patient is following commands and answering questions appropriately. Alert and oriented x3 Cranial Nerves 2-12 grossly intact Medical Decision & Procedures ER Provider Diagnostic Interpretation: Repeat ECG reveals sinus bradycardia at 59, no ectopy or ischemia. Radiology results as stated below per my review and radiologist interpretation: CHEST ONE VIEW PORTABLE CLINICAL HISTORY: Atypical chest pain. Arrhythmia. COMPARISON STUDY: July 06, 2017 FINDINGS: The heart is normal in size. There is no failure. There is no focal pulmonary consolidation. Underlying upper lobe emphysema is suspected. There are no pleural effusions.[ IMPRESSION: No active disease in the chest. Electronically signed by: Prashant Olivas M.D. 07/22/2017 12:46 PM Dictated Date/Time: 07/22/2017 12:45 PM Laboratory Results 07/22/17 13:35 Red Blood Count 5.16, Mean Corpuscular Volume 93.0, Mean Corpuscular Hemoglobin 29.7, Mean Corpuscular Hemoglobin Concent 31.9, Mean Platelet Volume 11.1, Neutrophils (%) (Auto) 53.8, Lymphocytes (%) (Auto) 32.0, Monocytes (%) (Auto) 12.1, Eosinophils (%) (Auto) 1.6, Basophils (%) (Auto) 0.4, Neutrophils # (Auto ) 3.59, Lymphocytes # (Auto) 2.14, Monocytes # (Auto) 0.81, Eosinophils # (Auto ) 0.11, Basophils # (Auto) 0.03 07/22/17 13:35 Test 07/22/17 13:35 White Blood Count 6.69 K/uL (4.8-10.8) Red Blood Count 5.16 M/uL (4.2-5.4) Hemoglobin 15.3 g/dL (12.0-16.0) Hematocrit 48.0 % (37-47) Mean Corpuscular Volume 93.0 fL (80-100) Mean Corpuscular Hemoglobin 29.7 pg (25-34) Mean Corpuscular Hemoglobin Concent 31.9 g/dl (32-36) Platelet Count 257 K/uL (130-400) Mean Platelet Volume 11.1 fL (7.4-10.4) Neutrophils (%) (Auto) 53.8 % Lymphocytes (%) (Auto) 32.0 % Monocytes (%) (Auto) 12.1 % Eosinophils (%) (Auto) 1.6 % Basophils (%) (Auto) 0.4 % Neutrophils # (Auto) 3.59 K/uL (1.4-6.5) Lymphocytes # (Auto) 2.14 K/uL (1.2-3.4) Monocytes # (Auto) 0.81 K/uL (0.11-0.59) Eosinophils # (Auto) 0.11 K/uL (0-0.5) Basophils # (Auto) 0.03 K/uL (0-0.2) RDW Standard Deviation 47.3 fL (36.4-46.3) RDW Coefficient of Variation 13.9 % (11.5-14.5) Immature Granulocyte % (Auto) 0.1 % Immature Granulocyte # (Auto) 0.01 K/uL (0.00-0.02) Prothrombin Time 11.5 SECONDS (9.0-12.0) Prothromb Time International Ratio 1.1 (0.9-1.1) Anion Gap 3.0 mmol/L (3-11) Est Creatinine Clear Calc Drug Dose 97.4 ml/min Estimated GFR () 104.4 Estimated GFR (Non- 90.1 BUN/Creatinine Ratio 29.0 (10-20) Calcium Level 8.9 mg/dl (8.5-10.1) Total Bilirubin 0.3 mg/dl (0.2-1) Direct Bilirubin < 0.1 mg/dl (0-0.2) Aspartate Amino Transf (AST/SGOT) 16 U/L (15-37) Alanine Aminotransferase (ALT/SGPT) 25 U/L (12-78) Alkaline Phosphatase 55 U/L (45-117) Total Creatine Kinase 113 U/L (26-192) Creatine Kinase MB 1.1 ng/ml (0.5-3.6) Creatine Kinase MB Ratio 1.0 (0-3.0) Troponin I < 0.015 ng/ml (0-0.045) Total Protein 6.8 gm/dl (6.4-8.2) Albumin 3.2 gm/dl (3.4-5.0) Lipase 135 U/L (73-393) Labs reviewed by ED physician. ECG Indication: SOB/dyspnea Rate (beats per minute): 112 Rhythm: atrial fibrillation Findings: no acute ischemic change, other (normal axis) Comparison ECG Date: 07/06/2017 Change: no significant change ED Course 1203: Past medical records reviewed. The patient was evaluated in room B9. A complete history and physical examination was performed. 1410: I discussed the case with Dr. Torres of cardiology and he will arrange follow-up with Dr. Parsad as an outpatient. 1413: I reassessed the patient at this time. She has converted out of the a- fib. She is feeling better and resting comfortably. I discussed the results and treatment plan with the patient. I answered all pertaining questions that she had. She expressed understanding and verbalized agreement. The patient will be discharged home. Medical Decision Differential diagnosis: Etiologies such as cardiac ischemia, aortic dissection, pulmonary embolism, pneumonia, pneumothorax, musculoskeletal, infections, pericarditis, myocarditis , esophageal rupture, gastrointestinal, as well as others were entertained. This is a 66-year-old female that presents emergency department complaining of atrial fib with RVR. The patient spontaneously converted in the emergency department and had a normal sinus rhythm. She also has a normal CK-MB troponin. Based on these findings I did consult the patient's heavy equipment service technician who will try get the patient and with Dr. Prasad [facility]. Patient was in agreement with the treatment plan. Medication Reconcilliation Current Medication List: was personally reviewed by me Blood Pressure Screening Patient's blood pressure: Normal blood pressure Consults Time Called: 1407 Consulting Physician: Dr. Torres Returned Call: 1410 I discussed the case with Dr. Torres of cardiology and he will arrange follow -up with Dr. Prasad as an outpatient. Impression Primary Impression: Atrial fibrillation with RVR Scribe Attestation The scribe's documentation has been prepared under my direction and personally reviewed by me in its entirety. I confirm that the note above accurately reflects all work, treatment, procedures, and medical decision making performed by me. Departure Information Dispostion Home / Self-Care Referrals No Doctor, Assigned (PCP) Suleiman Thorne M.D. Nydegger, Charles C M.D. Forms HOME CARE DOCUMENTATION FORM, IMPORTANT VISIT INFORMATION Patient Instructions Atrial Fibrillation Dc, ED Afib, [facility] Additional Instructions Follow up with DR Prasad's office You have been examined and treated today on an emergency basis only. This is not a substitute for, or an effort to provide, complete comprehensive medical care. It is impossible to recognize and treat all injuries or illnesses in a single emergency department visit. It is therefore important that you follow up closely with Dr Thorne. Call as soon as possible for an appointment. Thank you for your time and consideration. I look forward to speaking with you again soon. Please don't hesitate to call us if you have any questions.
[2017-07-22 13:49] LABS: BASO % 0.4 %; BASO ABS # 0.03 K/uL (0-0.2); COMPLETE YES; EOS % 1.6 %; IG% 0.1 %; LYMPH ABS # 2.14 K/uL (1.2-3.4); MEAN CORPUSCULAR HEMOGLOBIN 29.7 pg (25-34); MEAN CORPUSCULAR HGB CONC 31.9 g/dl (32-36); MEAN PLATELET VOLUME 11.1 fL (7.4-10.4); MONO % 12.1 %; NEUT % 53.8 %; PLATELET COUNT 257 K/uL (130-400); RED BLOOD COUNT 5.16 M/uL (4.2-5.4); WHITE BLOOD COUNT 6.69 K/uL (4.8-10.8)
[2017-07-22 13:58] LABS: INR 1.1 (0.9-1.1); PROTHROMBIN TIME (PATIENT) 11.5 SECONDS (9.0-12.0)
[2017-07-22 14:10] VITALS: BP 129/73; PULSE 63
[2017-07-22 14:22] LABS: BLOOD UREA NITROGEN 20 mg/dl (7-18); CREATININE 0.69 mg/dl (0.60-1.20); GLUCOSE 95 mg/dl (70-99)
[2017-07-22 14:23] LABS: ALT/SGPT 25 U/L (12-78); AST/SGOT 16 U/L (15-37); CALCIUM 8.9 mg/dl (8.5-10.1); CARBON DIOXIDE 30 mmol/L (21-32); CHLORIDE 108 mmol/L (98-107); POTASSIUM 4.1 mmol/L (3.5-5.1); SODIUM 141 mmol/L (136-145)
[2017-07-22 14:28] LABS: ALKALINE PHOSPHATASE 55 U/L (45-117)
== END 2017-07-22 14:45 | disposition home or self-care (01) ==
LOC: C.EDB 11:35
DX: I48.91 Unspecified atrial fibrillation (principal); I10 Essential (primary) hypertension; Z82.49 Family history of ischemic heart disease and other diseases of the circulatory system

== ENCOUNTER → 2017-11-09 | Outpatient (CLI) | payer OTHER ==
[~2017-11-09] MED LIST changes: +ASCO500C19 PO; +CALC-5 PO; +CHOL20009 PO; +CLBPO15 TOP; +CYAN10005 PO; +KRIL1CAP7 PO; -METO50TA7 PO; +METO50TA8 PO; +MULT-580 PO; +PROP1CAP PO; +SERT50TA PO
--- NOTE | 2017-11-10 13:46 | MAMMOGRAPHY REPORT ---
BILATERAL DIGITAL SCREENING MAMMOGRAM TOMOSYNTHESIS WITH CAD: 11/09/2017 CLINICAL HISTORY: Routine screening examination. TECHNIQUE: Breast tomosynthesis in addition to standard 2D mammography was performed. Current study was also evaluated with a Computer Aided Detection (CAD) system. COMPARISON: Comparison is made to exams dated: 11/04/2016 mammogram, 10/08/2015 mammogram, 07/20/2013 mammogram - [facility], 05/22/2012 mammogram, 04/21/2011 mammogram, and 04/15/2010 mammog annabelle. BREAST COMPOSITION: The tissue of both breasts is almost entirely fatty. FINDINGS: There are stable subareolar asymmetries bilaterally, and associated benign-appearing microc alcifications, most likely representing benign duct ectasia. No suspicious mass, architectural disto rtion or cluster of suspicious microcalcifications is seen. IMPRESSION: ACR BI-RADS CATEGORY 1: NEGATIVE There is no mammographic evidence of malignancy. A 1 year screening mammogram is recommended. The pa tient will receive written notification of the results. Approximately 10% of breast cancers are not detected with mammography. A negative mammographic report should not delay biopsy if a clinically suggestive mass is present. Lilia Mazariegos M.D. ay/:11/09/2017 16:08:04 Underground Utility Locator: Mariella FRANCO(R)(Robert), [facility] letter sent: Normal 1/2 BI-RADS Code: ACR BI-RADS Category 1: Negative
== END | disposition home or self-care (01) ==
LOC: C.MAMM 10:11
PROVIDERS: ATTEND Internal Medicine
DX: Z12.31 Encounter for screening mammogram for malignant neoplasm of breast (principal)

== ENCOUNTER → 2018-03-24 | Outpatient (CLI) | payer OTHER ==
[~2018-03-24] MED LIST changes: -ASCO500C19 PO; -CALC-5 PO; -CHOL20009 PO; -CLBPO15 TOP; -CYAN10005 PO; -KRIL1CAP7 PO; -MULT-580 PO; -PROP1CAP PO
--- NOTE | 2018-03-24 14:31 | DIAGNOSTIC IMAGING REPORT ---
CT HEAD WITHOUT CONTRAST (CT) CLINICAL HISTORY: Head pain.] Injury. COMPARISON STUDY: No previous studies for comparison. TECHNIQUE: Axial CT of the brain is performed from the vertex to the skull base. IV contrast was not administered for this examination. A dose lowering technique was utilized adhering to the principles of ALARA. CT DOSE: 788.63 mGycm FINDINGS: No intra or extra-axial mass lesions are visualized. There is no CT evidence of acute cortical infarction. There is no evidence of midline shift. There is no acute hemorrhage. No calvarial fractures are visualized. There are patchy white matter hypodensities likely on a small vessel basis. There is no evidence of pathologic ventricular dilatation. There is no evidence of acute sinusitis IMPRESSION: No acute intracranial findings Electronically signed by: Prashant Olivas M.D. 03/24/2018 2:29 PM Dictated Date/Time: 03/24/2018 2:28 PM
--- NOTE | 2018-03-24 14:38 | DIAGNOSTIC IMAGING REPORT ---
CT FACIAL BONES-MXILLOFAC WITHOUT CT DOSE: 608.20 mGycm CLINICAL HISTORY: Facial pain status post trauma COMPARISON STUDY: No previous studies for comparison. TECHNIQUE: Helical images were acquired in the transverse plane. The study was reviewed and analyzed on the independent 3-D workstation. A dose lowering technique was utilized adhering to the principles of ALARA. The pterygoid plates appear intact. The zygomatic arches appear intact. The globes appear intact. There is no evidence of orbital emphysema. The orbital rae and floor appear intact. The mandibular condyles appear intact. There are nondisplaced nasal bone fractures. There is a fracture of the inferior nasal spine. There is a tiny left mastoid effusion IMPRESSION: 1. Nondisplaced nasal bone fractures, and fracture of the inferior nasal spine 2. No additional facial fractures identified Electronically signed by: Prashant Olivas M.D. 03/24/2018 2:36 PM Dictated Date/Time: 03/24/2018 2:32 PM
== END | disposition home or self-care (01) ==
LOC: C.CTS 14:13
PROVIDERS: ATTEND Internal Medicine
DX: S09.90XA Unspecified injury of head, initial encounter (principal); X58.XXXA Exposure to other specified factors, initial encounter

== ENCOUNTER → 2018-06-28 | Day surgery (SDC) | payer OTHER ==
[2018-05-24 09:48] VITALS: Ht 165.1 cm; Wt 109.1 kg
[~2018-06-28] VITALS: Ht 165.1 cm; Wt 109.1 kg
[~2018-06-28] MED LIST changes: +ASCO500C19 PO; -ASCO500T16 PO; +CALC-5 PO; +CHOL20009 PO; +CLBPO15 TOP; +CYAN10005 PO; -DRON400T PO; +KRIL1CAP7 PO; +LIDOCAINE HCL 2% 2 ML VIAL (20MG/ML) ONE; +MIDAZOLAM HCL 1 MG/ML 2ML VIAL ONE; +MULT-580 PO; +ONDANSETRON INJ 2 MG/ML 2 ML VIAL ONE; +PROP1CAP PO; +PROPOFOL IV EMULSION 10 MG/ML 20 ML VIAL ONE; -SACC250C11; +SODIUM CHLORIDE 0.9% 500ML 500 ML IV ONE; -THIA50TA3 PO
--- NOTE | 2018-06-28 14:46 | Endo History and Physical ---
History & Physical Date of Service: Jun 28, 2018. Chief Complaint: screening Referring Physician: Dr. Suleiman Thorne History of Present Illness 67 yo CF who presents for screening colonoscopy. Past Surgical History Hx Cardiac Surgery: No Hx Internal Defibrillator: No Hx Pacemaker: No Hx Abdominal Surgery: Yes (TUBAL LIGATION) Hx of Implantable Prosthesis: No Hx Post-Op Nausea and Vomiting: No Hx Cancer Surgery: No Hx Thoracic Surgery: No Hx Orthopedic: No Hx Urinary Tract Surgery: No Family History Colon CA, Esophogeal CA Social History Smoking Status: Never Smoker Hx Substance Use: No Hx Alcohol Use: Yes (RARELY) Allergies Coded Allergies: No Known Allergies (Unverified , 06/28/18) Current Medications Reported Home Medications Medications Dose Route/Sig Max Daily Dose Days Date Category Propafenone Hcl Er (Propafenone Hcl) 325 Mg Cap 1 Tab PO BID 05/24/18 Reported Clobetasol Propionate 45 Appln/15 Gm Oint 1 Appln TOP BID 05/24/18 Reported Calcium 500 (Calcium-Magnesium W/ Vitamin D) 1 Tab Tab 2.5 Tab PO DAILY 05/24/18 Reported Krill Oil [place]-3 (Krill Oil) 1 Cap Cap 350 Mg PO DAILY 05/24/18 Reported Hair/Skin/Nails (Multiple Vitamins W/ Minerals) 1 Tab Tab 2 Tab PO DAILY 05/24/18 Reported Vitamin D (Cholecalciferol) 2,000 Unit Tab 1 Tab PO DAILY 05/24/18 Reported Vitamin B-12 (Cyanocobalamin) 1,000 Mcg Tab 1,000 Mcg PO DAILY 05/24/18 Reported Chewable Vitamin C (Ascorbic Acid) 500 Mg Chw 1 Tab PO DAILY 05/24/18 Reported Zoloft (Sertraline HCl) 50 Mg Tab 50 Mg PO QPM 07/22/17 Reported Xarelto (Rivaroxaban) 20 Mg Tab 20 Mg PO DAILY 09/26/13 Rx Toprol-Xl (Metoprolol Succinate) 50 Mg Tabcr 50 Mg PO DAILY 09/26/13 Reported Vital Signs Weight (Kilograms): 109.09 Height (Feet): 5 Height (Inches): 5 Date Time Temp Pulse Resp B/P (MAP) Pulse Ox O2 Delivery O2 Flow Rate FiO2 06/28/18 14:17 36.6 57 18 148/74 (98) 94 Room Air Physical Exam General Appearance: WD/WN, no apparent distress Respiratory/Chest: Auscultation: breath sounds normal Cardiovascular: Heart Auscultation: RRR Abdomen: Bowel Sounds: normal Inspection & Palpation: soft, non-distended, no tenderness, guarding & rebound Assessment and Plan Assessment: 67 yo CF who presents for screening colonoscopy. Plan: Proceed with colonoscopy.
--- NOTE | 2018-06-28 15:24 | GI REPORT ---
Patient Name: Denise Estrada Procedure Date: 06/28/2018 2:50 PM Date of : 1950 Admit Type: Outpatient Age: 67 Gender: Female Attending MD: Chandu Earl DO Procedure: Colonoscopy Providers: Chandu Earl DO Referring MD: Suleiman Thorne Indications: Screening for colorectal malignant neoplasm Medicines: Monitored Anesthesia Care Complications: No immediate complications. Estimated Blood Loss: Estimated blood loss: none. Procedure: Pre-Anesthesia Assessment: - Prior to the procedure, a History and Physical was performed, and patient medications and allergies were reviewed. The patient's tolerance of previous anesthesia was also reviewed. The risks and benefits of the procedure and the sedation options and risks were discussed with the patient. All questions were answered, and informed consent was obtained. Prior Anticoagulants: The patient has taken Xarelto (rivaroxaban), last dose was 3 days prior to procedure. ASA Grade Assessment: II - A patient with mild systemic disease. After reviewing the risks and benefits, the patient was deemed in satisfactory condition to undergo the procedure. After I obtained informed consent, the scope was passed under direct vision. Throughout the procedure, the patient's blood pressure, pulse, and oxygen saturations were monitored continuously. The scope was introduced through the anus and advanced to the terminal ileum. The colonoscopy was performed without difficulty. The patient tolerated the procedure well. The quality of the bowel preparation was good. The terminal ileum, ileocecal valve, appendiceal orifice, and rectum were photographed. Findings: The perianal and digital rectal examinations were normal. A localized area of moderately erythematous mucosa was found in the ascending colon. Biopsies were taken with a cold forceps for histology. Multiple small-mouthed diverticula were found in the sigmoid colon. Non-bleeding internal hemorrhoids were found during retroflexion. The hemorrhoids were small. Impression: - Erythematous mucosa in the ascending colon. Biopsied. - Diverticulosis in the sigmoid colon. - Non-bleeding internal hemorrhoids. Recommendation: - Resume previous diet. - Continue present medications. - Repeat colonoscopy for surveillance based on pathology results. - Return to primary care physician as previously scheduled. Chandu Earl DO 06/28/2018 3:23:47 PM This report has been signed electronically. Note Initiated On: 06/28/2018 2:50 PM Number of Addenda: 0 I attest to the content of the Intraoperative Record and orders documented therein, exceptions below {[id number]}
--- NOTE | 2018-06-28 15:35 | Anesthesiology Progress Note ---
Anesthesia Post Op Note Date & Time Jun 28, 2018 at 15:35 Vital Signs Pain Intensity: 0 Vital Signs Past 12 Hours Date Time Temp Pulse Resp B/P (MAP) Pulse Ox O2 Delivery O2 Flow Rate FiO2 06/28/18 15:23 55 18 111/44 (66) 95 Room Air 06/28/18 14:17 36.6 57 18 148/74 (98) 94 Room Air Notes Mental Status: alert / awake / arousable, participated in evaluation Pt Amnestic to Procedure: Yes Nausea / Vomiting: adequately controlled Pain: adequately controlled Airway Patency, RR, SpO2: stable & adequate BP & HR: stable & adequate Hydration State: stable & adequate Anesthetic Complications: no major complications apparent
[2018-06-28 15:54] VITALS: BP 134/54; PULSE 62; O2SAT 96
--- NOTE | 2018-06-28 16:11 | Discharge Instructions ---
Endoscopy Patient Instructions Date / Procedure(s) Performed Jun 28, 2018. Colonoscopy Allergy Information Coded Allergies: No Known Allergies (Unverified , 06/28/18) Discharge Date / Findings Jun 28, 2018. Right sided non-specific colitis s/p biopsies Diverticulosis Internal hemorrhoids Medication Instructions OK to resume all medications today as prescribed Reported Home Medications Medications Dose Route/Sig Max Daily Dose Days Date Category Propafenone Hcl Er (Propafenone Hcl) 325 Mg Cap 1 Tab PO BID 05/24/18 Reported Clobetasol Propionate 45 Appln/15 Gm Oint 1 Appln TOP BID 05/24/18 Reported Calcium 500 (Calcium-Magnesium W/ Vitamin D) 1 Tab Tab 2.5 Tab PO DAILY 05/24/18 Reported Krill Oil [place]-3 (Krill Oil) 1 Cap Cap 350 Mg PO DAILY 05/24/18 Reported Hair/Skin/Nails (Multiple Vitamins W/ Minerals) 1 Tab Tab 2 Tab PO DAILY 05/24/18 Reported Vitamin D (Cholecalciferol) 2,000 Unit Tab 1 Tab PO DAILY 05/24/18 Reported Vitamin B-12 (Cyanocobalamin) 1,000 Mcg Tab 1,000 Mcg PO DAILY 05/24/18 Reported Chewable Vitamin C (Ascorbic Acid) 500 Mg Chw 1 Tab PO DAILY 05/24/18 Reported Zoloft (Sertraline HCl) 50 Mg Tab 50 Mg PO QPM 07/22/17 Reported Xarelto (Rivaroxaban) 20 Mg Tab 20 Mg PO DAILY 09/26/13 Rx Toprol-Xl (Metoprolol Succinate) 50 Mg Tabcr 50 Mg PO DAILY 09/26/13 Reported Provider Instructions Activity Restrictions - No exercising or heavy lifting for 24 hours. - Do not drink alcohol the day of the procedure. - Do not drive a car or operate machinery until the day after the procedure. - Do not make any important decisions or sign important papers in 24 hours after the procedure. Following Day: - Return to full activity which may include returning to work/school. Diet Start your diet with liquids and light foods (jello, soup, juice, toast). Then eat your usual diet if not nauseated. Treatment For Common After Affects For mild abdominal pain, bloating, or excessive gas: - Rest - Eat lightly - Lie on right side Follow-Up Information Follow-up with Dr. Suleiman Thorne as scheduled Anesthesia Information What You Should Know You have had a procedure that required some medicine to reduce anxiety and discomfort. This treatment is called moderate sedation. After receiving the treatment, you may be sleepy, but you will be able to breathe on your own. The effects of the treatment may last for several hours. Follow these instructions along with Activity/Diet recommendations noted above: * Do NOT do anything where dizziness or clumsiness would be dangerous. * Rest quietly at home today, then you can be up and about tomorrow. * Have a responsible person stay with you the rest of today. * You may have had an I.V. today. If so, you may take the dressing off later today. Recommendations Call your doctor if: * Trouble breathing * Continuous vomiting for more than 24 hours * Temperature above 101 degrees * Severe abdominal pain or bloating * Pain not relieved by pain medicine ordered * There is increased drainage or redness from any incision * A large amount of rectal bleeding greater than 2-3 tablespoons. (If you had a polyp/s removed or have hemorrhoids, a small amount of blood - from the rectum is to be expected.) * You have any unanswered questions or concerns. IN THE EVENT OF A SERIOUS EMERGENCY, GO TO THE NEAREST EMERGENCY ROOM Your discharge instructions were prepared by provider Chandu Earl. Patient Instructions Signature Page Denise Estrada Patient (or Guardian) Signature/Date: I have read and understand the instructions given to me by my caregivers. Caregiver/RN/Doctor Signature/Date: The above-named patient and/or guardian has received patient instructions on this date. + Original Patient Signature Page (only) stays with chart. Please make copy for patient.
== END | disposition home or self-care (01) ==
LOC: C.GI 13:56
PROVIDERS: ATTEND Internal Medicine
DX: Z12.11 Encounter for screening for malignant neoplasm of colon (principal); K55.039 Acute (reversible) ischemia of large intestine, extent unspecified; K57.30 Diverticulosis of large intestine without perforation or abscess without bleeding; K64.8 Other hemorrhoids; I48.0 Paroxysmal atrial fibrillation; Z79.01 Long term (current) use of anticoagulants; Z80.0 Family history of malignant neoplasm of digestive organs

== ENCOUNTER 2019-10-30 13:40 | Observation (INO) ==
--- NOTE | 2019-10-30 14:24 | History & Physical Bridge Note ---
Date of Service October 30, 2019 History & Physical Bridge Note I have examined the patient, reviewed the History & Physical and in the interval since the performance of the History & Physical I have noted the following changes of clinical significance: no changes noted. Since her office visit she has discussed pacemaker implantation with her son-in-law (Dr. Johnson) who agreed that she needed a pacemaker. I discussed the indications, procedure, risks and alternatives with her today including risks of sedation and she understands and agrees to proceed. Consent for the procedure and for sedation obtained.
--- NOTE | 2019-10-30 14:25 | Pre Anesthesia Assessment ---
Date of Service October 30, 2019 Pre Sedation Assessment Vital Signs Temp Pulse Resp BP Pulse Ox 10/30/19 14:03 36.4 C L 75 16 187/103 H 96 Cardiovascular RRR, no murmur, no edema Respiratory normal respiratory effort, lungs clear to auscultation Pre-Sedation Airway Assessment Smoking Status: Never smoker Hx Sleep Apnea: No Thyromental Distance: > or= 3.5 Finger Breadths Oral Cavity: + WNL Mallampati Class: III ASA: ASA3 NPO Status Date of Last Intake of Fluids: 10/29/19 Time of Last Intake of Fluids: 22:00 Date of Last Intake of Solid Food: 10/29/19 Time of Last Intake of Solid Foods: 22:00 Procedure Planning Contraindications for Sedation: none Current Medications Reviewed: Yes Notes The planned sedation has been discussed with the patient. Informed Consent was obtained. I have identified the patient, determined the appropriateness of sedation and have assessed the patient immediately prior to the procedure. All medicine(s) and interventions are by my order.
[2019-10-30] MEDS ORDERED: MIDAZOLAM HCL 5 MG/ML 1 ML VIAL ONE (14:49)
[2019-10-30] MEDS ORDERED: fentaNYL citrate 100 MCG/2 ML VIAL ONE ×2 (14:49→15:56)
[2019-10-30] MEDS ORDERED: CEFAZOLIN 250 MG/ML 1 GM VIAL ONE ×2 (14:49→15:19)
[2019-10-30 14:54] LABS: Basophils # (auto) 0.02 K/uL (0-0.2); Basophils % (auto) 0.3 %; Eosinophils # (auto) 0.18 K/uL (0-0.5); Eosinophils % (auto) 2.9 %; Hemoglobin 14.1 g/dL (12.0-16.0); Lymphocytes # (auto) 1.85 K/uL (1.2-3.4); Lymphocytes % (auto) 29.7 %; Mean Corpuscular Hemoglobin 31.6 pg (25-34); Mean Corpuscular Volume 96.4 fL (80-100); Mean Platelet Volume 10.3 fL (7.4-10.4); Monocytes # (auto) 0.59 K/uL (0.11-0.59); Monocytes % (auto) 9.5 %; Neutrophils # (auto) 3.58 K/uL (1.4-6.5); Neutrophils % (auto) 57.6 %; Platelet Count 209 K/uL (130-400); RDW Coefficient of Variation 13.6 % (11.5-14.5); RDW Standard Deviation 48.1 fL (36.4-46.3); Red Blood Count 4.46 M/uL (4.2-5.4); White Blood Count 6.22 K/uL (4.8-10.8)
[2019-10-30 15:07] LABS: Partial Thromboplastin Ratio 0.9; Partial Thromboplastin Time 24.5 Seconds (21.0-31.0); Prothrombin Time 10.7 Seconds (9.0-12.0)
[2019-10-30 15:10] LABS: BUN Creatinine Ratio 27.5 (10-20); Calcium 9.1 mg/dl (8.5-10.1); Creatinine Clr Calc Pharmacy 98.7 ml/min; Est GFR (African American) 103.2; Est GFR (Non-African American) 89.1; Potassium 3.9 mmol/L (3.5-5.1)
[2019-10-30 15:12] LABS: Mean Corpuscular Hgb Conc 32.8 g/dL (32-36)
[2019-10-30] MEDS ORDERED: BACITRACIN INJ 50,000 UNIT VIAL ONE (15:17)
[2019-10-30] MEDS ORDERED: LIDOCAINE HCL 1% 20 ML VIAL ONE (15:17)
[2019-10-30] MEDS ORDERED: BACITRACIN OINT 0.9 GM PKT ONE (16:39)
[2019-10-30] MEDS ORDERED: ACETAMINOPHEN 325 MG TAB PO PRN (16:45)
--- NOTE | 2019-10-30 16:45 | Operative Report ---
PG Post Operative Report Pre & Post Diagnosis Operation Date: 10/30/19 15:00 Preoperative diagnosis: Sick sinus syndrome Postoperative diagnosis: Same I identified the patient and participated in the time-out.: Yes Procedure Operation Date: 10/30/19 15:00 Actual Procedures p Pacer with A/V Leads (Dual) - Chase Prasad MD Surgeon Chase Prasad MD Dust Collector Treater None Estimated Blood Loss 30 Findings Consistent with Post-Op Diagnosis Specimens None Anesthesia Type Local Complications none Disposition Accompanied Patient To Recovery: Yes Disposition: Recovery Room Description of Procedure After obtaining informed consent for the procedure, the patient was brought to the laboratory and prepped and draped in the standard sterile manner. The left prepectoral region was anesthetized with 1% lidocaine local anesthetic and left axillary venipuncture was performed by percutaneous technique and a guidewire placed through the left subclavian vein into the superior vena cava. The area was further infiltrated with 1% lidocaine local anesthetic and a 5 cm incision was made parallel to the left clavicle and 2 cm below it and carried down to the anterior pectoralis fascia. A pacemaker pocket was formed by blunt dissection anterior to the pectoralis fascia and a bacitracin-soaked sponge (50,000 units in 50 cc normal saline solution) was placed in the pocket. An 8 [place] Medtronic lead introducer was placed over the guidewire into the left subclavian vein, the dilator and guidewire were removed and a bipolar active fixation steroid tipped ventricular lead was advanced through the introducer into the superior vena cava. A guidewire was placed through the introducer and the introducer was stripped from the lead and guidewire. Another 8 [place] Medtronic lead introducer was placed over the guidewire into the left subclavian vein, the dilator and guidewire were removed and a bipolar active fixation steroid tipped atrial lead was advanced through the introducer into the superior vena cava. A guidewire was placed back through the introducer and the introducer was stripped from the lead and guidewire. Using a curved stylette the ventricular lead was advanced through the right ventricular outflow tract into the pulmonary artery and then using a straight stylette was positioned in the right ventricular apex. The screw was extended fixing the lead in position. Pacing and sensing thresholds were evaluated in bipolar configuration and are recorded on the implant data sheet. Using a curved stylette the atrial lead was positioned in the region of the atrial appendage and the screw extended fixing the lead in position. Pacing and sensing thresholds were evaluated in bipolar configuration and are recorded on the implant data sheet. Once the leads were in position they were attached to the anterior pectoralis fascia using 2 sutures of 2-0 silk around each lead collar. The bacitracin- soaked sponge was removed from the pocket, hemostasis was obtained, the pacemaker was attached to the leads and placed in the pocket with the leads coiled beneath it. The incision was closed with a running double subcutaneous closure of 3-0 Vicryl absorbable suture, followed by running subcuticular skin closure of 4-0 Vicryl absorbable suture. Bacitracin ointment was placed on the incision and a dressing applied. I attest to the content of the Intraoperative Record and any orders documented therein. Any exceptions are noted below.
--- NOTE | 2019-10-30 16:51 | Post Anesthesia Assessment ---
Date of Service October 30, 2019 Post Sedation Assessment Vital Signs Temp Pulse Resp BP Pulse Ox 10/30/19 14:03 36.4 C L 75 16 187/103 H 96 Recovery Score Activity: Moves 4 extremities Respiration: Deep Breath/Cough Circulation: +/-20% PreAnes Value Consciousness: Fully Awake Oxygen Saturation: > 92% On Room Air Discharge Sedation Level of Care: Fast Track Phase II Post Sedation Plan On clinical assessment, the patient appears to have tolerated the sedation without complications. Patient is recovering as anticipated. Patient will continue to be monitored by nursing and may be discharged when sedation discharge criteria are met per below protocol. Upon Completions of procedure up to 15 minutes continue every 5 minute vital signs and the P.A.R. score; then discharge to a Phase I or Fast Track to Phase II per the following guidelines: * Discharge Patient to appropriate Phase II area if PAR is 8 or greater or return to pre- procedure baseline. The post - procedure orders will be as directed. * If PAR score is less than 8 or not return to pre-procedure baseline then patient will follow Phase I monitoring till PAR is reached for Phase II. The Phase I may be done in procedure room or may call to secure a Phase I area. * If naloxone or flumazenil are used for reversal, hold in Phase I for continued monitoring from when last reversal dose was given for a minimum of 60 minutes or longer pending the nurse and/or physician discretion of patient condition before discharge to Phase II. Please call the Sedation Physician to re-evaluate and complete post-note for discharge to Phase II area. Do NOT discharge from procedure sedation or Phase 1 until post- sedation evaluation note is complete by procedure /sedation MD Sedation Discharge Instructions to be given to the patient at discharge to home.
[2019-10-30] MEDS ORDERED: KETOROLAC TROMETHAMINE 15 MG/ML VIAL ONE (17:40)
[2019-10-30] MEDS ORDERED: METOPROLOL SUCC 50MG EXT REL TAB PO SCH (18:00)
[2019-10-30] MEDS: KETOROLAC TROMETHAMINE 10 MG TABLET PO PRN ×2 (18:08→23:26)
[2019-10-30] MEDS: PROPAFENONE HCL 150 MG TABLET PO SCH (20:54)
[2019-10-31] MEDS: KETOROLAC TROMETHAMINE 10 MG TABLET PO PRN (05:41)
[2019-10-31] MEDS: PROPAFENONE HCL 150 MG TABLET PO SCH (05:41)
--- NOTE | 2019-10-31 07:09 | XRay Report ---
XR chest 2V PA/lateral HISTORY: 69 years-old Female EXACT TIME ORDERED Evaluate for pneumothorax and l status post placemen t of a left subclavian pacer COMPARISON: Chest radiographs 07/13/2019 TECHNIQUE: PA and lateral views of the chest FINDINGS: Lateral view limited secondary to left upper extremity positioning. Left subclavian pacer is noted wi th leads overlying the expected locations of the right atrium and right ventricle. The leads appear t o be intact. There is no postprocedural pneumothorax identified. Lung ocampo are clear without overt pulmonary edema, airspace consolidation or pleural effusion. Degenerative changes of the shoulders an d spine. IMPRESSION: Status post placement of a left subclavian pacer. No postprocedural pneumothorax. ACT 112: Negative or not required by law. The above report was generated using voice recognition software. It may contain grammatical, syntax o r spelling errors. Electronically signed by: Sreedhar Lee M.D. 10/31/2019 7:07 AM
--- NOTE | 2019-10-31 08:48 | Cardiology Progress Note ---
Date of Service October 31, 2019 Subjective She is having some incisional discomfort, no chest discomfort, no palpitations. No lightheadedness or dizziness. Physical Exam Physical Exam: The surgical incision looks clean and dry, no bleeding, no swelling. No erythema. Cardiac rhythm is regular with no rub Lungs are clear Results & Data Vital Signs (Past 12 Hours) Vital Signs Temp Pulse Resp BP Pulse Ox 10/31/19 07:03 36.5 C 69 H 93/67 L 94 10/31/19 04:06 36.8 C 70 19 125/78 92 Laboratory Results Coagulation 10/30/19 Range/Units 14:40 PT 10.7 (9.0-12.0) Seconds APTT 24.5 (21.0-31.0) Seconds CBC 10/30/19 Range/Units 14:40 WBC 6.22 (4.8-10.8) K/uL RBC 4.46 (4.2-5.4) M/uL Hgb 14.1 (12.0-16.0) g/dL Hct 43.0 (37-47) % Plt Count 209 (130-400) K/uL Neut # (Auto) 3.58 (1.4-6.5) K/uL Lymph # (Auto) 1.85 (1.2-3.4) K/uL [place] # (Auto) 0.59 (0.11-0.59) K/uL Eos # (Auto) 0.18 (0-0.5) K/uL Baso # (Auto) 0.02 (0-0.2) K/uL Comprehensive Metabolic Panel 10/30/19 Range/Units 14:40 Sodium 140 (136-145) mmol/L Potassium 3.9 (3.5-5.1) mmol/L Chloride 106 (98-107) mmol/L Carbon Dioxide 29 (21-32) mmol/L BUN 19 H (7-18) mg/dl Creatinine 0.67 (0.6-1.2) mg/dl Glucose 92 (70-99) mg/dl Calcium 9.1 (8.5-10.1) mg/dl Intake and Output 10/30/19 10/31/19 10/31/19 22:59 06:59 14:59 Intake Total 275 / 525 250 / 525 Output Total 350 / 350 Balance 275 / 175 -100 / 175 Intake: Oral 275 / 525 250 / 525 Output: Urine 350 / 350 Other: Weight 119.3 kg Diagnostic Findings Electrocardiogram post implant: Not done Telemetry: Atrial paced rhythm, no atrial fibrillation Chest x-ray: Good lead position, no pneumothorax Pacemaker evaluation: Excellent pacing and sensing characteristics PG Care Time/CCT Total # of Minutes Spent Total Time Spent with Patient: Total time spent is greater than 50% in coordination of care (as documented) at patient's floor/unit and/or counseling patient:
--- NOTE | 2019-11-12 06:13 | Discharge Summary ---
Date of Service October 31, 2019 Admission HPI Per Admitting Provider She has atrial fibrillation with a heart rate of over 140 bpm while on metoprolol 50 mg twice a day and on Propafenone. Now with the finding of sinus node dysfunction as well as rapid ventricular rates during atrial fibrillation we need some additional form of treatment for her arrhythmia. I discussed various options with her which include the possibility of atrial fibrillation ablation which might allow us to discontinue her beta-juan jose and antiarrhythmics, and it might improve her sinus node function so that she no longer has difficulty with exertion or lightheadedness from pauses. On the other hand I believe she probably has some element of intrinsic sinus node dysfunction and even performing the steps may not result in elimination of her symptoms, especially over time. The other option which I suggested was to implant a pacemaker which would almost certainly eliminate her intermittent dizziness, would allow us to more appropriately treat her heart rates with increasing AV digna medications or the use of other antiarrhythmics such as amiodarone which might tend to slow the sinus rate. Admission Exam (Per Admitting) Constitutional Constitutional: Alert, cooperative and in no distress. HEENT: Unremarkable Neck: No jugular venous distention, carotid pulses are normal and equal bilaterally without bruits. Pulmonary: Clear to auscultation bilaterally. Cardiac: Regular rhythm with a grade 2/6 holosystolic murmur at the apex, no gallop or rub. Abdomen: Soft, nontender with normal bowel sounds. Extremities: No edema. Distal pulses intact. Neurologic: No focal findings. Gait is steady. Skin: No rash, ecchymoses or petechiae. Discharge Data Procedures Performed Operation Date: 10/30/19 15:00 Actual Procedures p Pacer with A/V Leads (Dual) - Chase Prasad MD Hospital Course (1) Status post placement of cardiac pacemaker: Pacer implanted 10/30/2019, doing well post op. Stable for discharge.
== END 2019-10-31 10:28 | disposition home or self-care (01) ==
LOC: EP 13:40 → 2S 13:40